=== PATIENT | male | born 1975 | race Caucasian/White ===

== ENCOUNTER 2022-09-20 12:35 | Day surgery (SDC) | payer OTHER, SELFPAY ==
[2022-09-11 11:22] VITALS: BMI 21.6
[2022-09-14 10:56] VITALS: BMI 22.1
[2022-09-20 13:30] VITALS: BP 138/97; PULSE 57; RESP 20; TEMP 36.7; O2SAT 100
--- NOTE | 2022-09-20 13:39 | SUR.PREOP ---
PT UPDATED DR DAVIES REMAINS AT HOSPITAL. NO TIME FRAME GIVEN.
--- NOTE | 2022-09-20 13:43 | P.PNAN_ITS ---
Anes - Initial Pre Proc Eval Procedure: Operation Date: 09/20/22 14:30 Proposed Procedures p Screening Colonoscopy - Bryan Caldwell MD Date/Time: 09/20/22 13:43 Surgeon: Bryan Caldwell MD Pre Op Diagnosis: Neoplasm Screening Patient Data Age: 47 Gender: M Height: 1.78 m Weight: 70.2 kg Allergies Allergy/AdvReac Type Severity Reaction Status Date / Time No Known Allergies Allergy Verified 09/14/22 10:55 Home Medications Medication Instructions Recorded Confirmed Type sodium,potassium,mag sulfates 17.5 See Rx Instructions PO .COMPLEX 09/11/22 Rx gram-3.13 gram-1.6 gram oral soln #354 mL (Suprep Bowel Prep Kit) dextroamphetamine-amphetamine 10 10 mg PO DAILY 09/14/22 09/14/22 History mg tablet naproxen 500 mg tablet 500 mg PO DAILY 09/14/22 09/14/22 History Patient hx anesthesia problems: none Family hx anesthesia problems: none Results Review: All pre-operative results and documents have been reviewed as part of the pre- operative evaluation. [facility] Social History Social History Smoking status: Never smoker Alcohol intake: current Substance use: never Substance use type: does not use Living arrangements: with family Spiritual care concerns: No Anes - Eval Final PreProcedure Day of Procedure 09/20/22 13:43 Patient weight: normal Heart: regular rate and rhythm Lungs: clear to auscultation and normal air movement Airway: Mallampati scale class II Neurological: alert and oriented Last oral intake: >/= 8 hours ASA classification: I Emergent: no Anesthetic plan: proceed Anesthesia type and monitoring: general GIVS Results Review: All pre-operative results and documents have been reviewed as part of the pre- operative evaluation. Informed Consent: The patient's anesthetic plan and its attendant risks and benefits were discussed with the patient/family/POA. Questions were solicited and answers provided to the satisfaction of the patient/family/POA.
[2022-09-20] MEDS: LACTATED RINGERS 1,000 ML 150 ML IV CONT (14:06)
--- NOTE | 2022-09-20 14:33 | P.HP_ITS ---
History of Present Illness History of Present Illness Consent: Risks, benefits, and alternatives have been discussed and questions answered. Patient agrees to proceed with procedure. Chief complaint: Neoplasm Screening Narrative: Bright Blair is a 47 year old male presents for screening colonoscopy. Patient's current weight appetite and bowel movements are normal. Patient denies abdominal pain. He has had no bleeding. Patient's past medical history is significant for diverticulitis on a few occasions. This is decreased in frequency over the last several years. Patient did undergo a colonoscopy 20 years ago because of this. Patient has no family history of colon polyps. He presents today for neoplasia screening. Review of Systems Review of Systems: Review of systems noncontributory. [facility] Social History Social History Smoking status: Never smoker Alcohol intake: current Substance use: never Substance use type: does not use Living arrangements: with family Spiritual care concerns: No Meds Home Medications and Allergies Home Medications Medication Instructions Recorded Confirmed Type sodium,potassium,mag sulfates 17.5 See Rx Instructions PO .COMPLEX 09/11/22 09/20/22 Rx gram-3.13 gram-1.6 gram oral soln #354 mL (Suprep Bowel Prep Kit) dextroamphetamine-amphetamine 10 10 mg PO DAILY 09/14/22 09/20/22 History mg tablet naproxen 500 mg tablet 500 mg PO DAILY 09/14/22 09/20/22 History Allergies Allergy/AdvReac Type Severity Reaction Status Date / Time No Known Allergies Allergy Verified 09/20/22 13:56 Vital Signs Vital Signs - 24 hr 09/20/22 13:30 Temperature 98.0 F Pulse Rate 57 L Respiratory Rate 20 Blood Pressure 138/97 H Pulse Oximetry 100 Oxygen Delivery Room Air Exam Narrative: Fit physical exam reveals patient to be alert. Vital signs stable. HEENT exam is unremarkable. Patient is anicteric. Lungs are clear to auscultation and percussion. Heart is without murmur or extra sounds. Abdomen bowel sounds are present soft nontender with no organomegaly. Digital external rectal exam normal. Assessment and Plan Assessment and plan (1) Encounter for screening colonoscopy: Code(s): Z12.11 - Encounter for screening for malignant neoplasm of colon Status: Acute Assessment and Plan: Patient presents today for screening colonoscopy. He appears to be at average risk for colon polyps. Plan for high-fiber diet because a history of diverticular disease. Further recommendations may be given after endoscopy.
[2022-09-20 16:20] VITALS: BP 110/70; PULSE 56; RESP 15; O2SAT 100
[2022-09-20 16:25] VITALS: BP 100/88; PULSE 50; RESP 16; O2SAT 100
[2022-09-20 16:35] VITALS: BP 121/87; PULSE 57; RESP 16; O2SAT 100
== END 2022-09-20 16:43 | disposition home or self-care (01) ==
PROVIDERS: Visit Provider Internal Medicine Gastroenterology
PROC: 0DJD8ZZ Inspection of Lower Intestinal Tract, Via Natural or Artificial Opening Endoscopic (ICD-10-PCS; CPT 45378; principal; 2022-09-20 14:30)
DX: Z12.11 Encounter for screening for malignant neoplasm of colon (principal)
CPT/HCPCS: 45378